=== PATIENT | female | born 1955 | race Hispanic/Latino ===

== ENCOUNTER 2022-04-29 18:25 | Inpatient (IN) | payer OTHER ==
[~2022-04-29] VITALS: Ht 149.9 cm; Wt 99.8 kg
[2022-04-29 19:05] LABS: BASOPHILS % 0.3 % (0.0-1.0); EOSINOPHILS # (AUTO) 0.1 (0.0-0.4); EOSINOPHILS % 0.9 % (0.0-6.0); HEMOGLOBIN 9.9 g/dL (12.0-16.0); LYMPHOCYTES # (AUTO) 1.5 (1.0-3.2); LYMPHOCYTES % 17.5 % (18.0-39.1); MEAN CORPUSCULAR HEMOGLOBIN 24.6 pg (28-32); MEAN CORPUSCULAR VOLUME 81.9 fL (81-99); NEUTROPHILS # (AUTO) 6.2 (2.1-6.9); NEUTROPHILS % 70.1 % (38.7-80.0); RED BLOOD COUNT 4.03 x10e6/uL (3.6-5.1); RED CELL DISTRIBUTION WIDTH 21.1 % (11.7-14.4)
[2022-04-29 19:06] LABS: PLATELET COUNT 83 x10e3/uL (140-360)
[2022-04-29 19:16] LABS: INR 1.4; PROTHROMBIN TIME 17.4 seconds (11.9-14.5)
[2022-04-29 19:17] LABS: PARTIAL THROMBOPLASTIN TIME 35.7 seconds (23.8-35.5)
[2022-04-29 19:23] LABS: ALBUMIN 2.4 g/dL (3.5-5.0); ALBUMIN/GLOBULIN RATIO 0.6 (0.8-2.0); ANION GAP 12.2 mmol/L (8-16); CREATININE, SERUM 0.98 mg/dL (0.57-1.11); POTASSIUM 4.2 mmol/L (3.5-5.1)
[2022-04-29 19:30] LABS: CREATINE KINASE MB 14.8 ng/mL (0-5.0)
[2022-04-29 19:47] LABS: CLARITY,URINE SL CLOUDY (CLEAR); COLOR,URINE YELLOW (YELLOW)
[2022-04-29 19:48] LABS: LEUKOCYTE ESTERASE ,URINE NEGATIVE (NEGATIVE); NITRITE,URINE POSITIVE (NEGATIVE)
[2022-04-29 19:49] LABS: KETONES,URINE NEGATIVE (NEGATIVE); PROTEIN,URINE DIPSTICK NEGATIVE (NEGATIVE); URINE UROBILINOGEN 0.2 mg/dL (0.2 - 1)
[2022-04-29] MEDS ORDERED: IOPAMIDOL 370 MG/ML 100 ML INFUS..BTL INJ ONE (19:59)
[2022-04-29 20:00] LABS: BACTERIA,URINE RARE /HPF; EPITHELIAL CELLS,URINE MODERATE /LPF; RBC,URINE 0-5 /HPF (0-5); WBC,URINE (MAN) 0-5 /HPF (0-5)
[2022-04-29] MEDS ORDERED: ONDANSETRON HCL INJ 2MG/ML 2ML 2 MG/ML VIAL IV PRN (20:15)
[2022-04-29] MEDS: METRONIDAZOLE 500MG/NS 100ML 100 ML IV SCH (20:15)
[2022-04-29] MEDS ORDERED: SODIUM CHLORIDE 0.9% 250ML 250 ML ONE (22:24)
[2022-04-29 22:25] VITALS: BP 126/57
[2022-04-29 23:44] VITALS: BP 126/57
[2022-04-30] VITALS (8 sets, daily range): BP systolic 98–136; BP diastolic 43–67
[2022-04-30] MEDS: METRONIDAZOLE 500MG/NS 100ML 100 ML IV SCH ×2 (00:42→05:15)
[2022-04-30 05:20] LABS: BASOPHILS % 0.3 % (0.0-1.0); EOSINOPHILS # (AUTO) 0.2 (0.0-0.4); EOSINOPHILS % 2.5 % (0.0-6.0); HEMATOCRIT 31.4 % (34.2-44.1); HEMOGLOBIN 9.3 g/dL (12.0-16.0); LYMPHOCYTES % 12.3 % (18.0-39.1); MEAN CORPUSCULAR HEMOGLOBIN 24.2 pg (28-32); MEAN CORPUSCULAR HGB CONC 29.6 g/dL (31-35); MEAN CORPUSCULAR VOLUME 81.8 fL (81-99); MONOCYTES # (AUTO) 0.6 (0.2-0.8); MONOCYTES % 7.3 % (4.4-11.3); NEUTROPHILS # (AUTO) 6.1 (2.1-6.9); NEUTROPHILS % 77.3 % (38.7-80.0); PLATELET COUNT 55 x10e3/uL (140-360); RED BLOOD COUNT 3.84 x10e6/uL (3.6-5.1); RED CELL DISTRIBUTION WIDTH 21.1 % (11.7-14.4)
[2022-04-30 05:46] LABS: ALBUMIN/GLOBULIN RATIO 0.7 (0.8-2.0); ANION GAP 10.5 mmol/L (8-16); CALCIUM 7.6 mg/dL (8.4-10.2); CREATININE, SERUM 1.54 mg/dL (0.57-1.11); POTASSIUM 3.5 mmol/L (3.5-5.1)
[2022-04-30 05:49] LABS: CREATINE KINASE MB 13.7 ng/mL (0-5.0)
[2022-04-30] MEDS ORDERED: LOSARTAN POTASS25 MG PO (09:01)
[2022-04-30] MEDS ORDERED: ALBUMIN 25% 25GM 100ML 0.25 GM/ML BTL IV ONE (12:00)
[2022-04-30] MEDS: SODIUM CHLORIDE 0.9% 1000ML 1,000 ML IV SCH (12:10)
[2022-04-30] MEDS ORDERED: METRONIDAZOLE 500MG/NS 100ML 100 ML IV SCH (15:00)
[2022-04-30 16:11] LABS: ANION GAP 10.8 mmol/L (8-16); CALCIUM 7.9 mg/dL (8.4-10.2); CREATININE, SERUM 1.9 mg/dL (0.57-1.11); POTASSIUM 3.8 mmol/L (3.5-5.1)
[2022-04-30 16:30] LABS: CREATINE KINASE MB 9.1 ng/mL (0-5.0)
[2022-04-30] MEDS: PROPRANOLOL HCL 10 MG TAB PO SCH (16:30)
[2022-05-01] VITALS (8 sets, daily range): BP systolic 100–148; BP diastolic 51–70
[2022-05-01 01:12] LABS: % IRON SATURATION 13 % (15-50); IRON 32 ug/dL (50-170); TOTAL IRON BINDING CAPACITY 244 ug/dL (261-478); TRANSFERRIN 174 mg/dL (180-382)
[2022-05-01] MEDS: SODIUM CHLORIDE 0.9% 1000ML 1,000 ML IV SCH (05:39)
[2022-05-01 05:40] LABS: BASOPHILS % 0.3 % (0.0-1.0); EOSINOPHILS # (AUTO) 0.2 (0.0-0.4); EOSINOPHILS % 3.1 % (0.0-6.0); HEMATOCRIT 28.9 % (34.2-44.1); HEMOGLOBIN 8.7 g/dL (12.0-16.0); LYMPHOCYTES # (AUTO) 1.2 (1.0-3.2); LYMPHOCYTES % 18.3 % (18.0-39.1); MEAN CORPUSCULAR HEMOGLOBIN 24.8 pg (28-32); MEAN CORPUSCULAR HGB CONC 30.1 g/dL (31-35); MEAN CORPUSCULAR VOLUME 82.3 fL (81-99); MONOCYTES # (AUTO) 0.7 (0.2-0.8); MONOCYTES % 11.3 % (4.4-11.3); NEUTROPHILS # (AUTO) 4.3 (2.1-6.9); NEUTROPHILS % 66.7 % (38.7-80.0); PLATELET COUNT 66 x10e3/uL (140-360); RED BLOOD COUNT 3.51 x10e6/uL (3.6-5.1); RED CELL DISTRIBUTION WIDTH 21.1 % (11.7-14.4)
[2022-05-01 06:05] LABS: ALBUMIN 2.2 g/dL (3.5-5.0); ALBUMIN/GLOBULIN RATIO 0.8 (0.8-2.0); ANION GAP 10.8 mmol/L (8-16); CALCIUM 7.6 mg/dL (8.4-10.2); CREATININE, SERUM 2.16 mg/dL (0.57-1.11); POTASSIUM 3.8 mmol/L (3.5-5.1)
[2022-05-01 07:21] LABS: CREATINE KINASE MB 4.6 ng/mL (0-5.0)
[2022-05-01] MEDS: PROPRANOLOL HCL 10 MG TAB PO SCH ×2 (09:35→16:54)
[2022-05-01] MEDS: IRON SUCROSE 100 MG in SODIUM CHLORIDE 0.9% 100 ML IV SCH (13:25)
[2022-05-01] MEDS ORDERED: LACTATED RINGER'S 1,000 ML INJ ONE (14:15)
[2022-05-01] MEDS ORDERED: Vancomycin IV 1 GM in SODIUM CHLORIDE 0.9% 250ML 250 ML IV ONE (19:00)
[2022-05-02] VITALS (7 sets, daily range): BP systolic 102–147; BP diastolic 47–69
[2022-05-02 05:43] LABS: BASOPHILS % 0.5 % (0.0-1.0); EOSINOPHILS # (AUTO) 0.3 (0.0-0.4); EOSINOPHILS % 5.4 % (0.0-6.0); HEMATOCRIT 29.6 % (34.2-44.1); HEMOGLOBIN 8.9 g/dL (12.0-16.0); LYMPHOCYTES # (AUTO) 1.7 (1.0-3.2); LYMPHOCYTES % 26.7 % (18.0-39.1); MEAN CORPUSCULAR HEMOGLOBIN 24.7 pg (28-32); MEAN CORPUSCULAR HGB CONC 30.1 g/dL (31-35); MEAN CORPUSCULAR VOLUME 82.2 fL (81-99); MONOCYTES # (AUTO) 0.8 (0.2-0.8); MONOCYTES % 13.1 % (4.4-11.3); NEUTROPHILS # (AUTO) 3.4 (2.1-6.9); NEUTROPHILS % 53.8 % (38.7-80.0); PLATELET COUNT 83 x10e3/uL (140-360); RED CELL DISTRIBUTION WIDTH 21.2 % (11.7-14.4)
[2022-05-02 06:18] LABS: ANION GAP 10.7 mmol/L (8-16); CALCIUM 7.8 mg/dL (8.4-10.2); POTASSIUM 3.7 mmol/L (3.5-5.1)
[2022-05-02 06:40] LABS: MAGNESIUM 1.8 MG/DL (1.3-2.1); PHOSPHORUS 3.5 MG/DL (2.3-4.7)
[2022-05-02] MEDS: PROPRANOLOL HCL 10 MG TAB PO SCH ×2 (09:59→16:54)
[2022-05-02] MEDS ORDERED: ONDANSETRON HCL 4 MG ORAL DISINTEGRATING TAB PO PRN (11:30)
[2022-05-02] MEDS ORDERED: MAGNESIUM OXIDE 400 MG TAB PO ONE (15:30)
[2022-05-02] MEDS: IRON SUCROSE 100 MG in SODIUM CHLORIDE 0.9% 100 ML IV SCH (16:52)
[2022-05-03] VITALS (8 sets, daily range): BP systolic 103–133; BP diastolic 52–78
[2022-05-03 06:49] LABS: CALCIUM 7.4 mg/dL (8.4-10.2); CREATININE, SERUM 1.54 mg/dL (0.57-1.11)
[2022-05-03] MEDS: PROPRANOLOL HCL 10 MG TAB PO SCH ×2 (09:21→17:00)
[2022-05-03] MEDS: IRON SUCROSE 100 MG in SODIUM CHLORIDE 0.9% 100 ML IV SCH (14:53)
[2022-05-03] MEDS ORDERED: FUROSEMIDE INJ 10 MG/ML 4 ML VIAL IV ONE (15:45)
[2022-05-04] VITALS (8 sets, daily range): BP systolic 94–118; BP diastolic 25–67
[2022-05-04 05:53] LABS: BASOPHILS % 0.6 % (0.0-1.0); EOSINOPHILS # (AUTO) 0.3 (0.0-0.4); EOSINOPHILS % 5.3 % (0.0-6.0); HEMATOCRIT 30.3 % (34.2-44.1); HEMOGLOBIN 9.1 g/dL (12.0-16.0); LYMPHOCYTES # (AUTO) 1.4 (1.0-3.2); LYMPHOCYTES % 29.9 % (18.0-39.1); MEAN CORPUSCULAR HEMOGLOBIN 24.5 pg (28-32); MEAN CORPUSCULAR VOLUME 81.7 fL (81-99); MONOCYTES # (AUTO) 0.7 (0.2-0.8); MONOCYTES % 14.6 % (4.4-11.3); NEUTROPHILS # (AUTO) 2.3 (2.1-6.9); NEUTROPHILS % 48.8 % (38.7-80.0); PLATELET COUNT 76 x10e3/uL (140-360); RED BLOOD COUNT 3.71 x10e6/uL (3.6-5.1); RED CELL DISTRIBUTION WIDTH 21.4 % (11.7-14.4)
[2022-05-04 06:09] LABS: ALBUMIN/GLOBULIN RATIO 0.7 (0.8-2.0); ANION GAP 10.5 mmol/L (8-16); CALCIUM 7.5 mg/dL (8.4-10.2); CREATININE, SERUM 1.27 mg/dL (0.57-1.11); POTASSIUM 3.5 mmol/L (3.5-5.1)
[2022-05-04] MEDS: PROPRANOLOL HCL 10 MG TAB PO SCH ×2 (08:58→17:49)
[2022-05-04] MEDS ORDERED: FUROSEMIDE INJ 10 MG/ML 4 ML VIAL IV ONE (11:30)
[2022-05-04] MEDS ORDERED: POTASSIUM CHLORIDE 20 MEQ TAB CR PO ONE (17:41)
[2022-05-04] MEDS: CEFAZOLIN SODIUM 2 GM in SODIUM CHLORIDE 0.9% 100 ML IV SCH (17:49)
[2022-05-04] MEDS: FUROSEMIDE INJ 10 MG/ML 4 ML VIAL IV SCH (23:48)
[2022-05-05] VITALS (9 sets, daily range): BP systolic 103–137; BP diastolic 38–88
[2022-05-05] MEDS: CEFAZOLIN SODIUM 2 GM in SODIUM CHLORIDE 0.9% 100 ML IV SCH ×3 (01:17→16:39)
[2022-05-05 06:15] LABS: ALBUMIN/GLOBULIN RATIO 0.6 (0.8-2.0); ANION GAP 12.5 mmol/L (8-16); CALCIUM 7.5 mg/dL (8.4-10.2); POTASSIUM 3.5 mmol/L (3.5-5.1)
[2022-05-05] MEDS: PROPRANOLOL HCL 10 MG TAB PO SCH ×2 (09:11→16:40)
[2022-05-05] MEDS: FUROSEMIDE INJ 10 MG/ML 4 ML VIAL IV SCH ×2 (09:11→21:22)
[2022-05-05] MEDS: POTASSIUM CHLORIDE 20 MEQ TAB CR PO SCH (09:12)
[2022-05-06] VITALS (7 sets, daily range): BP systolic 105–137; BP diastolic 48–67
[2022-05-06] MEDS: CEFAZOLIN SODIUM 2 GM in SODIUM CHLORIDE 0.9% 100 ML IV SCH ×3 (01:06→18:31)
[2022-05-06 06:08] LABS: INR 1.44; PROTHROMBIN TIME 17.7 seconds (11.9-14.5)
[2022-05-06 06:09] LABS: PARTIAL THROMBOPLASTIN TIME 39.8 seconds (23.8-35.5)
[2022-05-06 06:15] LABS: CALCIUM 7.5 mg/dL (8.4-10.2); CREATININE, SERUM 0.79 mg/dL (0.57-1.11)
[2022-05-06] MEDS: FUROSEMIDE INJ 10 MG/ML 4 ML VIAL IV SCH ×2 (08:54→21:06)
[2022-05-06] MEDS: POTASSIUM CHLORIDE 20 MEQ TAB CR PO SCH (08:54)
[2022-05-06] MEDS: PROPRANOLOL HCL 10 MG TAB PO SCH ×2 (09:00→18:31)
[2022-05-06] MEDS ORDERED: POTASSIUM CHLORIDE 10MEQ EA PO ONE (11:00)
[2022-05-06 11:09] LABS: CLARITY,URINE CLEAR (CLEAR); COLOR,URINE YELLOW (YELLOW); KETONES,URINE NEGATIVE (NEGATIVE); LEUKOCYTE ESTERASE ,URINE NEGATIVE (NEGATIVE); NITRITE,URINE NEGATIVE (NEGATIVE); PROTEIN,URINE DIPSTICK NEGATIVE (NEGATIVE); URINE UROBILINOGEN 0.2 mg/dL (0.2 - 1)
[2022-05-06 12:38] LABS: BACTERIA,URINE RARE /HPF; EPITHELIAL CELLS,URINE FEW /LPF; RBC,URINE 0-5 /HPF (0-5); WBC,URINE (MAN) 0-5 /HPF (0-5)
[2022-05-06] MEDS ORDERED: MAGNESIUM SULFATE 2GM/50ML 50 ML IV ONE ×3 (14:15→21:00)
[2022-05-06] MEDS ORDERED: POTASSIUM CHLORIDE 20 MEQ TAB CR PO ONE ×2 (17:17→21:00)
[2022-05-07] VITALS (8 sets, daily range): BP systolic 102–133; BP diastolic 38–56
[2022-05-07] MEDS: CEFAZOLIN SODIUM 2 GM in SODIUM CHLORIDE 0.9% 100 ML IV SCH ×3 (01:17→16:46)
[2022-05-07 06:49] LABS: BASOPHILS % 0.4 % (0.0-1.0); EOSINOPHILS # (AUTO) 0.2 (0.0-0.4); EOSINOPHILS % 4.7 % (0.0-6.0); HEMATOCRIT 28.6 % (34.2-44.1); HEMOGLOBIN 8.8 g/dL (12.0-16.0); LYMPHOCYTES # (AUTO) 1.4 (1.0-3.2); LYMPHOCYTES % 26.5 % (18.0-39.1); MEAN CORPUSCULAR HEMOGLOBIN 25.2 pg (28-32); MEAN CORPUSCULAR HGB CONC 30.8 g/dL (31-35); MEAN CORPUSCULAR VOLUME 81.9 fL (81-99); MONOCYTES # (AUTO) 0.6 (0.2-0.8); MONOCYTES % 12.6 % (4.4-11.3); NEUTROPHILS # (AUTO) 2.8 (2.1-6.9); NEUTROPHILS % 54.4 % (38.7-80.0); RED BLOOD COUNT 3.49 x10e6/uL (3.6-5.1); RED CELL DISTRIBUTION WIDTH 21.8 % (11.7-14.4)
[2022-05-07 07:03] LABS: PLATELET COUNT 68 x10e3/uL (140-360)
[2022-05-07 07:15] LABS: ALBUMIN 1.8 g/dL (3.5-5.0); ALBUMIN/GLOBULIN RATIO 0.6 (0.8-2.0); ANION GAP 10.4 mmol/L (8-16); CALCIUM 7.5 mg/dL (8.4-10.2); CREATININE, SERUM 0.67 mg/dL (0.57-1.11); POTASSIUM 3.4 mmol/L (3.5-5.1)
[2022-05-07] MEDS: POTASSIUM CHLORIDE 20 MEQ TAB CR PO SCH (09:28)
[2022-05-07] MEDS: PROPRANOLOL HCL 10 MG TAB PO SCH ×2 (09:29→16:47)
[2022-05-07] MEDS: FUROSEMIDE INJ 10 MG/ML 4 ML VIAL IV SCH ×2 (09:40→20:40)
[2022-05-07] MEDS ORDERED: FUROSEMIDE INJ 10 MG/ML 4 ML VIAL IV ONE (14:45)
[2022-05-07] MEDS ORDERED: MAGNESIUM SULF 1GRAM/DEXTROSE 100 ML IV ONE (17:45)
[2022-05-08] VITALS (8 sets, daily range): BP systolic 104–120; BP diastolic 42–75
[2022-05-08] MEDS: CEFAZOLIN SODIUM 2 GM in SODIUM CHLORIDE 0.9% 100 ML IV SCH ×3 (00:13→16:40)
[2022-05-08 06:51] LABS: ANION GAP 11.5 mmol/L (8-16); CALCIUM 7.2 mg/dL (8.4-10.2); CREATININE, SERUM 0.71 mg/dL (0.57-1.11); POTASSIUM 3.5 mmol/L (3.5-5.1)
[2022-05-08] MEDS: POTASSIUM CHLORIDE 20 MEQ TAB CR PO SCH (09:08)
[2022-05-08] MEDS: FUROSEMIDE INJ 10 MG/ML 4 ML VIAL IV SCH ×2 (09:08→21:46)
[2022-05-08] MEDS: PROPRANOLOL HCL 10 MG TAB PO SCH ×2 (09:09→16:41)
[2022-05-09] MEDS: CEFAZOLIN SODIUM 2 GM in SODIUM CHLORIDE 0.9% 100 ML IV SCH ×3 (00:48→16:48)
[2022-05-09 01:41] VITALS: BP 103/45
[2022-05-09 05:27] VITALS: BP 110/74
[2022-05-09 06:27] LABS: ANION GAP 10.5 mmol/L (8-16); CALCIUM 7.1 mg/dL (8.4-10.2); CREATININE, SERUM 0.65 mg/dL (0.57-1.11); MAGNESIUM 1.3 MG/DL (1.3-2.1); POTASSIUM 3.5 mmol/L (3.5-5.1)
[2022-05-09 08:00] VITALS: BP 103/55
[2022-05-09] MEDS ORDERED: IRON-VITAMIN-MINERAL CAPSULE PO SCH (09:00)
[2022-05-09] MEDS: FUROSEMIDE INJ 10 MG/ML 4 ML VIAL IV SCH (09:04)
[2022-05-09] MEDS: PROPRANOLOL HCL 10 MG TAB PO SCH (09:05)
[2022-05-09] MEDS: POTASSIUM CHLORIDE 20 MEQ TAB CR PO SCH (09:05)
[2022-05-09 09:55] VITALS: BP 103/55
[2022-05-09] MEDS ORDERED: POTASSIUM CHLORIDE 20 MEQ TAB CR PO ONE (12:00)
[2022-05-09] MEDS ORDERED: MAGNESIUM SULFATE 2GM/50ML 50 ML IV ONE (12:00)
[2022-05-09] MEDS ORDERED: INDERAL10 MG PO (12:03)
[2022-05-09 12:55] VITALS: BP 104/46
[2022-05-09 17:26] VITALS: BP 109/46
== END 2022-05-09 18:54 | disposition home or self-care (01) | DRG 432 ==
LOC: ER 18:29 → ERHOLD 20:24 → MED/SURG2 21:41 → OBSVTOIN 05-02 08:27
PROVIDERS: ADMIT Internal Medicine; ATTEND Internal Medicine
PROC: 3E03329 Introduction of Other Anti-infective into Peripheral Vein, Percutaneous Approach (ICD-10-PCS; 2022-04-29)
PROC: 3E03329 Introduction of Other Anti-infective into Peripheral Vein, Percutaneous Approach (ICD-10-PCS; 2022-04-29)
PROC: 3E03329 Introduction of Other Anti-infective into Peripheral Vein, Percutaneous Approach (ICD-10-PCS; 2022-04-30)
PROC: 3E03329 Introduction of Other Anti-infective into Peripheral Vein, Percutaneous Approach (ICD-10-PCS; 2022-04-30)
PROC: 3E03329 Introduction of Other Anti-infective into Peripheral Vein, Percutaneous Approach (ICD-10-PCS; 2022-05-01)
PROC: 3E03329 Introduction of Other Anti-infective into Peripheral Vein, Percutaneous Approach (ICD-10-PCS; 2022-05-01)
PROC: 3E03329 Introduction of Other Anti-infective into Peripheral Vein, Percutaneous Approach (ICD-10-PCS; 2022-05-02)
PROC: 3E03329 Introduction of Other Anti-infective into Peripheral Vein, Percutaneous Approach (ICD-10-PCS; 2022-05-03)
PROC: 3E03329 Introduction of Other Anti-infective into Peripheral Vein, Percutaneous Approach (ICD-10-PCS; 2022-05-03)
PROC: 3E03329 Introduction of Other Anti-infective into Peripheral Vein, Percutaneous Approach (ICD-10-PCS; 2022-05-04)
PROC: 3E03329 Introduction of Other Anti-infective into Peripheral Vein, Percutaneous Approach (ICD-10-PCS; 2022-05-05)
PROC: 02HV33Z Insertion of Infusion Device into Superior Vena Cava, Percutaneous Approach (ICD-10-PCS; principal; 2022-05-06)
PROC: 3E03329 Introduction of Other Anti-infective into Peripheral Vein, Percutaneous Approach (ICD-10-PCS; 2022-05-06)
PROC: 3E04329 Introduction of Other Anti-infective into Central Vein, Percutaneous Approach (ICD-10-PCS; 2022-05-07)
PROC: 3E04329 Introduction of Other Anti-infective into Central Vein, Percutaneous Approach (ICD-10-PCS; 2022-05-08)
PROC: 3E04329 Introduction of Other Anti-infective into Central Vein, Percutaneous Approach (ICD-10-PCS; 2022-05-09)
DX: K70.31 Alcoholic cirrhosis of liver with ascites (principal); A41.01 Sepsis due to Methicillin susceptible Staphylococcus aureus; I33.0 Acute and subacute infective endocarditis; J90 Pleural effusion, not elsewhere classified; M62.82 Rhabdomyolysis; N17.9 Acute kidney failure, unspecified; I87.1 Compression of vein; Z68.41 Body mass index [BMI] 40.0-44.9, adult; I82.611 Acute embolism and thrombosis of superficial veins of right upper extremity; E87.6 Hypokalemia; I95.9 Hypotension, unspecified; E87.70 Fluid overload, unspecified; E83.42 Hypomagnesemia; D69.6 Thrombocytopenia, unspecified; E88.09 Other disorders of plasma-protein metabolism, not elsewhere classified; K76.1 Chronic passive congestion of liver; R53.81 Other malaise; D50.9 Iron deficiency anemia, unspecified; E66.01 Morbid (severe) obesity due to excess calories; L53.8 Other specified erythematous conditions; I10 Essential (primary) hypertension; K52.9 Noninfective gastroenteritis and colitis, unspecified; Z90.710 Acquired absence of both cervix and uterus; Z82.49 Family history of ischemic heart disease and other diseases of the circulatory system; Z83.79 Family history of other diseases of the digestive system
CPT/HCPCS: 36415; 36569; 71045; 74177; 74470; 76705; 80048; 80053; 81001; 82105; 82550; 82553; 82607; 82746; 83540; 83690; 83735; 84100; 84300; 84466; 84484; 85025; 85045; 85610; 85730; 87040; 87071; 87186; 87205; 93005; 93306; 93970; 93971; 94799; 99252; 99284; G0378; J0690; J1756; J1940; J2543; J3370; J3475; J7030; J7050; J7121; P9047; Q9967

== ENCOUNTER 2023-10-31 23:47 | Inpatient (IN) | payer MEDICARE, OTHER ==
[~2023-10-31] VITALS: Ht 149.9 cm; Wt 74.6 kg
[~2023-10-31 23:47] MED LIST: INDERAL10 MG PO; LOSARTAN POTASS25 MG PO; TAMIFLU75 MG PO
[2023-11-01] VITALS (34 sets, daily range): BP systolic 65–124; BP diastolic 27–78; PULSE 59–79; RESP 12–21; TEMP 96.2–98.1; O2SAT 97–100
[2023-11-01] MEDS: MIDODRINE 2.5 MG TAB PO ONE (00:47)
[2023-11-01 01:05] LABS: BASOPHILS % 0.3 % (0.0-1.0); EOSINOPHILS % 0.2 % (0.0-6.0); HEMATOCRIT 31.1 % (34.2-44.1); HEMOGLOBIN 9.7 g/dL (12.0-16.0); LYMPHOCYTES # (AUTO) 1.5 (1.0-3.2); LYMPHOCYTES % 11.7 % (18.0-39.1); MEAN CORPUSCULAR HEMOGLOBIN 31.3 pg (28-32); MEAN CORPUSCULAR HGB CONC 31.2 g/dL (31-35); MEAN CORPUSCULAR VOLUME 100.3 fL (81-99); MONOCYTES # (AUTO) 0.6 (0.2-0.8); MONOCYTES % 4.8 % (4.4-11.3); NEUTROPHILS # (AUTO) 10.4 (2.1-6.9); NEUTROPHILS % 82.3 % (38.7-80.0); RED CELL DISTRIBUTION WIDTH 15.7 % (11.7-14.4)
[2023-11-01 01:08] LABS: PLATELET COUNT 72 x10e3/uL (140-360)
[2023-11-01 01:13] LABS: ALBUMIN 1.6 g/dL (3.5-5.0); ALBUMIN/GLOBULIN RATIO 0.4 (0.8-2.0); ANION GAP 20.9 mmol/L (8-16); BILIRUBIN,TOTAL 4.1 mg/dL (0.2-1.2); CALCIUM 7.3 mg/dL (8.4-10.2); CREATININE, SERUM 1.76 mg/dL (0.57-1.11); POTASSIUM 3.9 mmol/L (3.5-5.1); TOTAL PROTEIN 5.3 g/dL (6.5-8.1)
[2023-11-01] MEDS: Vancomycin IV 1 GM in SODIUM CHLORIDE 0.9% 250ML 250 ML IV ONE (02:02)
[2023-11-01 02:15] LABS: INR 2.63; PARTIAL THROMBOPLASTIN TIME 46.8 seconds (23.8-35.5); PROTHROMBIN TIME 29.8 seconds (11.9-14.5)
[2023-11-01] MEDS ORDERED: ONDANSETRON HCL INJ 2MG/ML 2ML 2 MG/ML VIAL IV PRN (02:30)
[2023-11-01] MEDS: SODIUM CHLORIDE 0.9% 500ML 500 ML IV ONE ×2 (02:54→04:16)
[2023-11-01] MEDS: ALBUMIN 25% 25GM 100ML 0.25 GM/ML BTL IV ONE ×2 (02:54→09:07)
[2023-11-01] MEDS ORDERED: SODIUM CHLORIDE 0.9% 500ML 500 ML ONE (04:19)
[2023-11-01] MEDS ORDERED: ACETAMINOPHEN 325 MG TAB PO PRN (05:45)
[2023-11-01] MEDS ORDERED: ALBUTEROL SULF 0.083% NEB SOLN 3 ML NEB NEB PRN (05:45)
[2023-11-01] MEDS ORDERED: GUAIFENESIN/DEXTROMETHORPHAN LIQD 5 ML UDC PO PRN (05:45)
[2023-11-01] MEDS ORDERED: TRAMADOL HCL 50 MG TAB PO PRN (05:45)
[2023-11-01] MEDS ORDERED: MAGNESIUM/ALUMINUM/SIMETHICONE 30 ML UDC PO PRN (05:45)
[2023-11-01] MEDS ORDERED: MELATONIN 3 MG TAB PO PRN (05:45)
[2023-11-01] MEDS ORDERED: SODIUM CHLORIDE 0.9% 100 ML ONE (06:06)
[2023-11-01] MEDS ORDERED: Doxycycline IV 100 MG Vial IV ONE (06:06)
[2023-11-01] MEDS: Doxycycline IV 100 MG in SODIUM CHLORIDE 0.9% 100 ML IV SCH (06:10)
[2023-11-01 06:33] LABS: ABG HCO3 23 mmol/L (22-26); ABG PCO2 41 mmHg (35-45); ABG PH 7.31 (7.35-7.45); ABG PO2 80 mmHg (80-105); ABG TCO2 24
[2023-11-01 07:26] LABS: BAND NEUTROPHILS % (MANUAL) 18 %; LYMPHOCYTES % (MANUAL) 14 % (19-48); METAMYELOCYTES % (MANUAL) 7 % (0-0); NEUTROPHILS % (MANUAL) 60 % (40-74); PLATELET ESTIMATE MODERATELY DECREASED; REACTIVE LYMPHOCYTES 1
[2023-11-01 07:27] LABS: HYPOCHROMASIA SLIGHT; PLATELET MORPHOLOGY COMMENT NORMAL; RBC MORPHOLOGY COMMENT ABNORMAL
[2023-11-01] MEDS: MIDODRINE 2.5 MG TAB PO SCH (08:00)
[2023-11-01] MEDS ORDERED: LACTATED RINGER'S 500 ML IV ONE (08:00)
[2023-11-01] MEDS: MULTIVITAMINS/MINERALS TAB PO SCH (08:14)
[2023-11-01] MEDS ORDERED: MIDODRINE HCL 5 MG TABLET ONE (08:32)
[2023-11-01] MEDS ORDERED: ALBUMIN 25% 12.5GM 50ML 100 ML IV ONE (08:34)
[2023-11-01] MEDS: LACTATED RINGER'S 500 ML IV ONE ×2 (09:06→11:10)
[2023-11-01] MEDS: ALBUMIN 25% 12.5GM 0.25 GM/ML BTL IV ONE ×2 (11:31→11:33)
[2023-11-01] MEDS: MIDODRINE HCL 5 MG TABLET PO SCH (11:32)
[2023-11-01] MEDS ORDERED: MIDODRINE HCL 5 MG TABLET PO SCH (12:00)
[2023-11-01] MEDS ORDERED: ALBUMIN 25% 12.5GM 0.25 GM/ML BTL IV ONE ×2 (12:15)
[2023-11-01] MEDS ORDERED: ALBUMIN 25% 25GM 100ML 0.25 GM/ML BTL IV ONE (13:15)
[2023-11-01] MEDS: ALBUMIN 25% 12.5GM 50ML 50 ML IV SCH (14:39)
[2023-11-01] MEDS: VASOPRESSIN INJ 20 UNIT/ML VIAL ONE (14:40)
[2023-11-01] MEDS: VASOPRESSIN 60 UNIT in DEXTROSE 5% 50ML 57 ML IV SCH (15:06)
[2023-11-01] MEDS: SODIUM CHLORIDE 0.9% 500ML 500 ML ONE (15:07)
[2023-11-01] MEDS: ALBUMIN 25% 25GM 100ML 100 ML IV SCH (15:18)
[2023-11-01 16:52] LABS: ALBUMIN 2.6 g/dL (3.5-5.0); ANION GAP 18.2 mmol/L (8-16); BILIRUBIN,TOTAL 4.6 mg/dL (0.2-1.2); CALCIUM 7.2 mg/dL (8.4-10.2); CREATININE, SERUM 2.15 mg/dL (0.57-1.11); POTASSIUM 4.2 mmol/L (3.5-5.1); TOTAL PROTEIN 5.1 g/dL (6.5-8.1)
[2023-11-01] MEDS ORDERED: OCTREOTIDE ACETATE 1 ML ONE (19:53)
[2023-11-01] MEDS: OCTREOTIDE ACETATE 500 MCG in SODIUM CHLORIDE 0.9% 250ML 249 ML IV SCH (20:00)
[2023-11-01] MEDS ORDERED: FUROSEMIDE INJ 10 MG/ML 4 ML VIAL IV SCH (21:00)
[2023-11-01] MEDS: SODIUM BICARBONATE 8.4% SYRING 150 ML in DEXTROSE 5% 1,000 ML IV SCH (21:38)
[2023-11-01] MEDS: BUMETANIDE INJ 0.25MG/ML 4ML VIAL IV ONE (21:39)
[2023-11-02] VITALS (79 sets, daily range): BP systolic 78–139; BP diastolic 42–86; PULSE 59–89; RESP 12–23; TEMP 97.5–98.1; O2SAT 94–100
[2023-11-02 01:54] LABS: CREATININE,URINE RANDOM 278.19 mg/dL (47-110)
[2023-11-02] MEDS: PHYTONADIONE 10 MG/ML AMP IV ONE (02:17)
[2023-11-02 02:21] LABS: SODIUM,URINE < 20 mmol/L
[2023-11-02 06:22] LABS: BASOPHILS # (AUTO) 0.1 (0.0-0.1); BASOPHILS % 0.5 % (0.0-1.0); HEMATOCRIT 24.8 % (34.2-44.1); LYMPHOCYTES # (AUTO) 1.3 (1.0-3.2); LYMPHOCYTES % 11.7 % (18.0-39.1); MEAN CORPUSCULAR HEMOGLOBIN 31.3 pg (28-32); MEAN CORPUSCULAR HGB CONC 30.2 g/dL (31-35); MONOCYTES # (AUTO) 1.2 (0.2-0.8); MONOCYTES % 10.9 % (4.4-11.3); NEUTROPHILS # (AUTO) 7.3 (2.1-6.9); NEUTROPHILS % 68.2 % (38.7-80.0); RED CELL DISTRIBUTION WIDTH 15.9 % (11.7-14.4); WHITE BLOOD COUNT 10.68 x10e3/uL (4.8-10.8)
[2023-11-02 06:25] LABS: PLATELET COUNT 39 x10e3/uL (140-360)
[2023-11-02 06:28] LABS: HEMOGLOBIN 7.5 g/dL (12.0-16.0)
[2023-11-02 06:29] LABS: MEAN CORPUSCULAR VOLUME 103.3 fL (81-99)
[2023-11-02 06:31] LABS: INR 4.57
[2023-11-02 06:53] LABS: ALBUMIN 3.2 g/dL (3.5-5.0); ALBUMIN/GLOBULIN RATIO 1.6 (0.8-2.0); ANION GAP 17.5 mmol/L (8-16); BILIRUBIN,TOTAL 4.9 mg/dL (0.2-1.2); CALCIUM 7.2 mg/dL (8.4-10.2); CREATININE, SERUM 2.59 mg/dL (0.57-1.11); POTASSIUM 4.5 mmol/L (3.5-5.1); TOTAL PROTEIN 5.2 g/dL (6.5-8.1)
[2023-11-02] MEDS: ALBUMIN 5% 0.05 GM/ML BTL IV ONE ×2 (08:13→11:52)
[2023-11-02] MEDS: BUMETANIDE INJ 0.25MG/ML 4ML VIAL IV ONE (08:20)
[2023-11-02 10:18] LABS: BAND NEUTROPHILS % (MANUAL) 4 %; LYMPHOCYTES % (MANUAL) 14 % (19-48); MONOCYTES % (MANUAL) 11 % (3.4-9.0); MYELOCYTES % (MANUAL) 2 % (0-0); NEUTROPHILS % (MANUAL) 69 % (40-74); PLATELET ESTIMATE MARKEDLY DECREASED; PLATELET MORPHOLOGY COMMENT NORMAL; RBC MORPHOLOGY COMMENT NORMAL
[2023-11-02 12:26] LABS: HEPATITIS B SURFACE AG (P) Nonreactive
[2023-11-02 12:27] LABS: HEPATITIS C ANTIBODY Nonreactive
[2023-11-02] MEDS ORDERED: BUMETANIDE 10 MG in SODIUM CHLORIDE 0.9% 60 ML IV SCH (13:30)
[2023-11-02] MEDS: BUMETANIDE 10 MG in SODIUM CHLORIDE 0.9% 60 ML IV SCH (16:31)
[2023-11-03] VITALS (47 sets, daily range): BP systolic 104–167; BP diastolic 32–105; PULSE 58–72; RESP 11–23; TEMP 97.8–98.6; O2SAT 99–100
[2023-11-03] MEDS: PHYTONADIONE 10 MG/ML AMP IV ONE (02:58)
[2023-11-03 03:58] LABS: % IRON SATURATION 62 % (15-50); IRON 67 ug/dL (50-170); TOTAL IRON BINDING CAPACITY 108 ug/dL (261-478); TRANSFERRIN 77 mg/dL (180-382)
[2023-11-03 04:32] LABS: FOLATE 7.7 ng/mL (7.0-15.4)
[2023-11-03 06:48] LABS: ALBUMIN/GLOBULIN RATIO 1.3 (0.8-2.0); ANION GAP 12.9 mmol/L (8-16); CALCIUM 7.1 mg/dL (8.4-10.2); CREATININE, SERUM 2.44 mg/dL (0.57-1.11); POTASSIUM 3.9 mmol/L (3.5-5.1); TOTAL PROTEIN 5.4 g/dL (6.5-8.1)
[2023-11-03 08:00] LABS: BASOPHILS % 0.2 % (0.0-1.0); EOSINOPHILS % 0.2 % (0.0-6.0); HEMATOCRIT 24.2 % (34.2-44.1); HEMOGLOBIN 7.6 g/dL (12.0-16.0); LYMPHOCYTES # (AUTO) 1.9 (1.0-3.2); LYMPHOCYTES % 14.9 % (18.0-39.1); MEAN CORPUSCULAR HEMOGLOBIN 31.3 pg (28-32); MEAN CORPUSCULAR HGB CONC 31.4 g/dL (31-35); MEAN CORPUSCULAR VOLUME 99.6 fL (81-99); MONOCYTES # (AUTO) 1.5 (0.2-0.8); MONOCYTES % 11.6 % (4.4-11.3); NEUTROPHILS # (AUTO) 9.2 (2.1-6.9); NEUTROPHILS % 71.6 % (38.7-80.0); RED BLOOD COUNT 2.43 x10e6/uL (3.6-5.1); RED CELL DISTRIBUTION WIDTH 15.4 % (11.7-14.4); WHITE BLOOD COUNT 12.81 x10e3/uL (4.8-10.8)
[2023-11-03 08:02] LABS: PLATELET COUNT 50 x10e3/uL (140-360)
[2023-11-03 08:22] LABS: INR 2.42; PROTHROMBIN TIME 27.9 seconds (11.9-14.5)
[2023-11-03 09:55] LABS: LYMPHOCYTES % (MANUAL) 5 % (19-48); MONOCYTES % (MANUAL) 5 % (3.4-9.0); MYELOCYTES % (MANUAL) 1 % (0-0); NEUTROPHILS % (MANUAL) 89 % (40-74); PLATELET ESTIMATE MARKEDLY DECREASED; PLATELET MORPHOLOGY COMMENT NORMAL
[2023-11-03 09:56] LABS: RBC MORPHOLOGY COMMENT NORMAL
[2023-11-04] VITALS (28 sets, daily range): BP systolic 132–178; BP diastolic 55–97; PULSE 57–83; RESP 11–23; TEMP 97.5–99; O2SAT 92–100
[2023-11-04] MEDS: PHYTONADIONE 10 MG/ML AMP IV ONE (04:42)
[2023-11-04 06:26] LABS: BASOPHILS % 0.3 % (0.0-1.0); EOSINOPHILS # (AUTO) 0.1 (0.0-0.4); EOSINOPHILS % 0.7 % (0.0-6.0); HEMATOCRIT 26.8 % (34.2-44.1); HEMOGLOBIN 8.5 g/dL (12.0-16.0); LYMPHOCYTES # (AUTO) 1.6 (1.0-3.2); LYMPHOCYTES % 16.6 % (18.0-39.1); MEAN CORPUSCULAR HGB CONC 31.7 g/dL (31-35); MEAN CORPUSCULAR VOLUME 97.8 fL (81-99); MONOCYTES # (AUTO) 1.3 (0.2-0.8); MONOCYTES % 13.9 % (4.4-11.3); NEUTROPHILS # (AUTO) 5.8 (2.1-6.9); NEUTROPHILS % 61.6 % (38.7-80.0); RED BLOOD COUNT 2.74 x10e6/uL (3.6-5.1); RED CELL DISTRIBUTION WIDTH 14.7 % (11.7-14.4); WHITE BLOOD COUNT 9.34 x10e3/uL (4.8-10.8)
[2023-11-04 06:33] LABS: PLATELET COUNT 45 x10e3/uL (140-360)
[2023-11-04 06:41] LABS: INR 2.3; PROTHROMBIN TIME 26.8 seconds (11.9-14.5)
[2023-11-04 06:53] LABS: ALBUMIN 2.7 g/dL (3.5-5.0); ALBUMIN/GLOBULIN RATIO 1.1 (0.8-2.0); ANION GAP 10.3 mmol/L (8-16); BILIRUBIN,TOTAL 4.2 mg/dL (0.2-1.2); CALCIUM 7.6 mg/dL (8.4-10.2); CREATININE, SERUM 1.66 mg/dL (0.57-1.11); POTASSIUM 3.3 mmol/L (3.5-5.1); TOTAL PROTEIN 5.2 g/dL (6.5-8.1)
[2023-11-04] MEDS: POTASSIUM CHLORIDE 20 MEQ TAB CR PO STA (08:23)
[2023-11-04] MEDS: BUMETANIDE INJ 0.25MG/ML 4ML VIAL IV SCH (12:14)
[2023-11-04] MEDS: LACTULOSE SYRUP 20 GM/30 ML UDC PO PRN (12:14)
[2023-11-04] MEDS: POTASSIUM CHLORIDE 20MEQ/100ML 100 ML IV ONE (12:14)
[2023-11-04 13:28] LABS: BAND NEUTROPHILS % (MANUAL) 4 %; EOSINOPHILS % (MANUAL) 2 % (0-7); LYMPHOCYTES % (MANUAL) 19 % (19-48); MONOCYTES % (MANUAL) 2 % (3.4-9.0); NEUTROPHILS % (MANUAL) 73 % (40-74); PLATELET ESTIMATE MODERATELY DECREASED; PLATELET MORPHOLOGY COMMENT NORMAL
[2023-11-04 13:29] LABS: HYPOCHROMASIA SLIGHT
[2023-11-04] MEDS: HYDRALAZINE HCL 20 MG/ML VIAL IV PRN (13:39)
[2023-11-05] VITALS (25 sets, daily range): BP systolic 123–188; BP diastolic 56–100; PULSE 56–81; RESP 10–22; TEMP 97.7–99.3; O2SAT 100
[2023-11-05] MEDS: PHYTONADIONE 10 MG/ML AMP IV ONE (03:33)
[2023-11-05 06:48] LABS: INR 2.57; PROTHROMBIN TIME 29.2 seconds (11.9-14.5)
[2023-11-05] MEDS: LACTULOSE SYRUP 20 GM/30 ML UDC PO SCH (06:50)
[2023-11-05 06:55] LABS: BASOPHILS # (AUTO) 0.1 (0.0-0.1); BASOPHILS % 0.6 % (0.0-1.0); EOSINOPHILS # (AUTO) 0.1 (0.0-0.4); EOSINOPHILS % 0.6 % (0.0-6.0); HEMATOCRIT 26.2 % (34.2-44.1); HEMOGLOBIN 8.5 g/dL (12.0-16.0); LYMPHOCYTES # (AUTO) 1.5 (1.0-3.2); LYMPHOCYTES % 18.4 % (18.0-39.1); MEAN CORPUSCULAR HGB CONC 32.4 g/dL (31-35); MEAN CORPUSCULAR VOLUME 95.6 fL (81-99); MONOCYTES # (AUTO) 1.1 (0.2-0.8); MONOCYTES % 13.4 % (4.4-11.3); NEUTROPHILS % 50.5 % (38.7-80.0); RED BLOOD COUNT 2.74 x10e6/uL (3.6-5.1); RED CELL DISTRIBUTION WIDTH 14.6 % (11.7-14.4)
[2023-11-05 06:59] LABS: ALBUMIN 2.7 g/dL (3.5-5.0); ALBUMIN/GLOBULIN RATIO 1.1 (0.8-2.0); CALCIUM 7.8 mg/dL (8.4-10.2); CREATININE, SERUM 1.05 mg/dL (0.57-1.11); TOTAL PROTEIN 5.2 g/dL (6.5-8.1)
[2023-11-05 07:17] LABS: PHOSPHORUS 1.6 MG/DL (2.3-4.7)
[2023-11-05 07:21] LABS: PLATELET COUNT 38 x10e3/uL (140-360)
[2023-11-05 07:45] LABS: MAGNESIUM 0.9 MG/DL (1.3-2.1)
[2023-11-05] MEDS: RIFAXIMIN 550 MG TABLET PO SCH (09:41)
[2023-11-05] MEDS: MAGNESIUM SULFATE 2GM/50ML 50 ML IV ONE ×2 (09:41→12:31)
[2023-11-05] MEDS: SODIUM CHLORIDE 0.9% 100 ML ONE (09:41)
[2023-11-05 09:46] LABS: LYMPHOCYTES % (MANUAL) 13 % (19-48); MONOCYTES % (MANUAL) 3 % (3.4-9.0); MYELOCYTES % (MANUAL) 11 % (0-0); NEUTROPHILS % (MANUAL) 72 % (40-74); NUCLEATED RED BLOOD CELLS 1; PLATELET ESTIMATE MARKEDLY DECREASED; PLATELET MORPHOLOGY COMMENT NORMAL; REACTIVE LYMPHOCYTES 1
[2023-11-05] MEDS: ACETAMINOPHEN 325 MG TAB PO PRN (09:47)
[2023-11-05 09:48] LABS: POLYCHROMASIA FEW
[2023-11-05 09:49] LABS: ANISOCYTOSIS SLIGHT; RBC MORPHOLOGY COMMENT NORMAL
[2023-11-05] MEDS: POTASSIUM PHOSPHATE 30 MM in SODIUM CHLORIDE 0.9% 250ML 250 ML IV ONE (11:22)
[2023-11-06] VITALS (28 sets, daily range): BP systolic 99–148; BP diastolic 43–71; PULSE 57–80; RESP 11–34; TEMP 97.4–98.6; O2SAT 95–100
[2023-11-06 07:01] LABS: BASOPHILS # (AUTO) 0.1 (0.0-0.1); BASOPHILS % 0.7 % (0.0-1.0); EOSINOPHILS # (AUTO) 0.4 (0.0-0.4); EOSINOPHILS % 4.5 % (0.0-6.0); HEMATOCRIT 25.9 % (34.2-44.1); HEMOGLOBIN 8.3 g/dL (12.0-16.0); LYMPHOCYTES # (AUTO) 1.9 (1.0-3.2); LYMPHOCYTES % 23.5 % (18.0-39.1); MEAN CORPUSCULAR HEMOGLOBIN 30.6 pg (28-32); MEAN CORPUSCULAR VOLUME 95.6 fL (81-99); MONOCYTES # (AUTO) 0.9 (0.2-0.8); MONOCYTES % 11.2 % (4.4-11.3); NEUTROPHILS # (AUTO) 3.7 (2.1-6.9); NEUTROPHILS % 46.5 % (38.7-80.0); RED BLOOD COUNT 2.71 x10e6/uL (3.6-5.1); RED CELL DISTRIBUTION WIDTH 14.6 % (11.7-14.4); WHITE BLOOD COUNT 8.01 x10e3/uL (4.8-10.8)
[2023-11-06 07:05] LABS: PLATELET COUNT 39 x10e3/uL (140-360)
[2023-11-06 07:33] LABS: ALBUMIN 2.3 g/dL (3.5-5.0); ALBUMIN/GLOBULIN RATIO 0.9 (0.8-2.0); ANION GAP 12.1 mmol/L (8-16); BILIRUBIN,TOTAL 6.6 mg/dL (0.2-1.2); CALCIUM 7.3 mg/dL (8.4-10.2); CREATININE, SERUM 0.81 mg/dL (0.57-1.11); MAGNESIUM 1.3 MG/DL (1.3-2.1); TOTAL PROTEIN 4.8 g/dL (6.5-8.1)
[2023-11-06 07:35] LABS: POTASSIUM 3.1 mmol/L (3.5-5.1)
[2023-11-06] MEDS: MAGNESIUM SULFATE 2GM/50ML 50 ML IV ONE (08:28)
[2023-11-06] MEDS: POTASSIUM CHLORIDE 20MEQ/100ML 100 ML IV SCH (08:28)
[2023-11-06] MEDS: MAGNESIUM SULF 1GRAM/DEXTROSE 100 ML IV ONE (08:28)
[2023-11-06 10:02] LABS: BAND NEUTROPHILS % (MANUAL) 1 %; EOSINOPHILS % (MANUAL) 4 % (0-7); LYMPHOCYTES % (MANUAL) 15 % (19-48); METAMYELOCYTES % (MANUAL) 3 % (0-0); MONOCYTES % (MANUAL) 12 % (3.4-9.0); MYELOCYTES % (MANUAL) 3 % (0-0); NEUTROPHILS % (MANUAL) 62 % (40-74); NUCLEATED RED BLOOD CELLS 1
[2023-11-06 10:03] LABS: PLATELET ESTIMATE MARKEDLY DECREASED; PLATELET MORPHOLOGY COMMENT NORMAL; RBC MORPHOLOGY COMMENT NORMAL
[2023-11-06] MEDS: SPIRONOLACTONE 25 MG TAB PO SCH (16:11)
[2023-11-06 18:01] LABS: ANION GAP 14.4 mmol/L (8-16); CALCIUM 7.3 mg/dL (8.4-10.2); CREATININE, SERUM 1.02 mg/dL (0.57-1.11)
[2023-11-06 18:03] LABS: POTASSIUM 3.4 mmol/L (3.5-5.1)
[2023-11-06] MEDS: BUMETANIDE INJ 0.25MG/ML 4ML VIAL IV SCH (20:25)
[2023-11-07] VITALS (28 sets, daily range): BP systolic 81–156; BP diastolic 46–81; PULSE 66–83; RESP 13–24; TEMP 97.6–98.4; O2SAT 95–99
[2023-11-07 07:01] LABS: BASOPHILS % 0.4 % (0.0-1.0); EOSINOPHILS # (AUTO) 0.3 (0.0-0.4); EOSINOPHILS % 3.7 % (0.0-6.0); HEMATOCRIT 24.4 % (34.2-44.1); HEMOGLOBIN 7.9 g/dL (12.0-16.0); LYMPHOCYTES # (AUTO) 1.9 (1.0-3.2); LYMPHOCYTES % 25.1 % (18.0-39.1); MEAN CORPUSCULAR HEMOGLOBIN 30.9 pg (28-32); MEAN CORPUSCULAR HGB CONC 32.4 g/dL (31-35); MEAN CORPUSCULAR VOLUME 95.3 fL (81-99); MONOCYTES # (AUTO) 0.8 (0.2-0.8); NEUTROPHILS # (AUTO) 3.7 (2.1-6.9); NEUTROPHILS % 49.6 % (38.7-80.0); RED BLOOD COUNT 2.56 x10e6/uL (3.6-5.1); RED CELL DISTRIBUTION WIDTH 14.5 % (11.7-14.4); WHITE BLOOD COUNT 7.38 x10e3/uL (4.8-10.8)
[2023-11-07 07:12] LABS: PLATELET COUNT 32 x10e3/uL (140-360)
[2023-11-07 07:33] LABS: ALBUMIN 2.2 g/dL (3.5-5.0); ANION GAP 11.1 mmol/L (8-16); BILIRUBIN,TOTAL 5.7 mg/dL (0.2-1.2); CALCIUM 7.1 mg/dL (8.4-10.2); CREATININE, SERUM 0.79 mg/dL (0.57-1.11); MAGNESIUM 1.6 MG/DL (1.3-2.1); PHOSPHORUS 1.6 MG/DL (2.3-4.7); TOTAL PROTEIN 4.5 g/dL (6.5-8.1)
[2023-11-07 07:41] LABS: POTASSIUM 3.1 mmol/L (3.5-5.1)
[2023-11-07 08:26] LABS: BAND NEUTROPHILS % (MANUAL) 1 %; BASOPHILS % (MANUAL) 1 % (0-1.5); EOSINOPHILS % (MANUAL) 3 % (0-7); LYMPHOCYTES % (MANUAL) 12 % (19-48); MONOCYTES % (MANUAL) 9 % (3.4-9.0); MYELOCYTES % (MANUAL) 2 % (0-0); NEUTROPHILS % (MANUAL) 72 % (40-74); PLATELET ESTIMATE MARKEDLY DECREASED; PLATELET MORPHOLOGY COMMENT NORMAL
[2023-11-07 08:27] LABS: RBC MORPHOLOGY COMMENT NORMAL
[2023-11-07] MEDS ORDERED: XIFAXAN550 MG PO (08:47)
[2023-11-07] MEDS ORDERED: ALDACTONE25 MG PO (08:47)
[2023-11-07] MEDS ORDERED: LACTULOSE20 GM/30 M PO (08:47)
[2023-11-07] MEDS ORDERED: Multivitamins/Minerals Tab PO (08:47)
[2023-11-07] MEDS ORDERED: CEPHALEXIN500 MG PO (08:50)
[2023-11-07] MEDS: POTASSIUM CHLORIDE 20 MEQ TAB CR PO ONE (10:20)
[2023-11-07] MEDS: POTASSIUM PHOSPHATE 30 MM in SODIUM CHLORIDE 0.9% 250ML 250 ML IV ONE (10:22)
[2023-11-07 14:34] LABS: BODY FLUID APPEARANCE SL.CLOUDY; BODY FLUID COLOR YELLOW; BODY FLUID TYPE PERITONEAL; RBC,BODY FLUID 2000 cells/uL; WBC,BODY FLUID 173 cells/uL
[2023-11-07] MEDS: POTASSIUM CHLORIDE 20MEQ/100ML 200 ML IV ONE (14:44)
[2023-11-07] MEDS: SPIRONOLACTONE 25 MG TAB PO SCH (14:45)
[2023-11-07 18:56] LABS: LYMPHOCYTES,BODY FLUID 44 %; MONO/MACROPHG,BODY FLUID 35 %; NEUTROPHILS,BODY FLUID 21 %; TOTAL CELLS COUNTED (DIFF) 100
== END 2023-11-07 20:30 | disposition home health service (06) | DRG 432 ==
LOC: ER 23:53 → ERHOLD 11-01 02:20 → ICU 11-01 14:30
PROVIDERS: ADMIT Family Medicine Adult Medicine; ATTEND Family Medicine Adult Medicine
PROC: 3E033XZ Introduction of Vasopressor into Peripheral Vein, Percutaneous Approach (ICD-10-PCS; 2023-11-01)
PROC: 4A033R1 Measurement of Arterial Saturation, Peripheral, Percutaneous Approach (ICD-10-PCS; 2023-11-01)
PROC: 02HV33Z Insertion of Infusion Device into Superior Vena Cava, Percutaneous Approach (ICD-10-PCS; 2023-11-01)
PROC: 30233K1 Transfusion of Nonautologous Frozen Plasma into Peripheral Vein, Percutaneous Approach (ICD-10-PCS; 2023-11-02)
PROC: 0W9G3ZZ Drainage of Peritoneal Cavity, Percutaneous Approach (ICD-10-PCS; principal; 2023-11-07)
DX: K70.31 Alcoholic cirrhosis of liver with ascites (principal); I50.31 Acute diastolic (congestive) heart failure; K76.7 Hepatorenal syndrome; L03.115 Cellulitis of right lower limb; N17.9 Acute kidney failure, unspecified; J90 Pleural effusion, not elsewhere classified; E87.20 Acidosis, unspecified; I85.10 Secondary esophageal varices without bleeding; D68.9 Coagulation defect, unspecified; K76.6 Portal hypertension; K76.82 Hepatic encephalopathy; I11.0 Hypertensive heart disease with heart failure; F10.21 Alcohol dependence, in remission; I95.9 Hypotension, unspecified; D63.8 Anemia in other chronic diseases classified elsewhere; D69.6 Thrombocytopenia, unspecified; E83.42 Hypomagnesemia; E83.39 Other disorders of phosphorus metabolism; R19.7 Diarrhea, unspecified; K80.20 Calculus of gallbladder without cholecystitis without obstruction; I08.3 Combined rheumatic disorders of mitral, aortic and tricuspid valves; E66.9 Obesity, unspecified; Z68.33 Body mass index [BMI] 33.0-33.9, adult; Z87.891 Personal history of nicotine dependence; Z11.52 Encounter for screening for COVID-19; Z79.899 Other long term (current) drug therapy
CPT/HCPCS: 36415; 36569; 36600; 49083; 51700; 71045; 74470; 76700; 76705; 76770; 80048; 80053; 82040; 82105; 82140; 82570; 82607; 82746; 82805; 83540; 83690; 83735; 83880; 84100; 84157; 84300; 84466; 85025; 85045; 85610; 85730; 86850; 86900; 87040; 87070; 87205; 88112; 88305; 89051; 93306; 93970; 94799; 99252; 99285; J0360; J0696; J2353; J2405; J2543; J3430; J3475; J3480; J7040; J7050; J7070; J7120; P9017; P9047; U0002

== ENCOUNTER → 2024-11-28 | Day surgery (SDC) | payer MEDICARE, OTHER ==
[2024-11-22 15:55] LABS: BASOPHILS % 0.5 % (0.0-1.0); EOSINOPHILS % 6.9 % (0.0-6.0); LYMPHOCYTES % 30.7 % (18.0-39.1); MONOCYTES % 9.8 % (4.4-11.3); NEUTROPHILS % 51.5 % (38.7-80.0); RED CELL DISTRIBUTION WIDTH 15.6 % (11.7-14.4)
[2024-11-22 16:12] LABS: INR 1.23
[2024-11-22 16:21] LABS: EST GLOMERULAR FILTRATION RATE 72.0 ML/MIN (>=60)
[~2024-11-28] MED LIST changes: +ALDACTONE25 MG PO; +CEPHALEXIN500 MG PO; +FENTANYL CITRATE/PF 100MCG/2 ML INJ ONE; +GLYCOPYRROLATE INJ 0.2 MG/ML VIAL ONE; +HUMALOG100 UNIT/1 SC; +LACTULOSE20 GM/30 M PO; +LASIX10 MG/ML PO; +LIDOCAINE HCL 2% LOCAL INJ 5 ML SDV VIAL INJ ONE; +METFORMIN HCL500 MG PO; +Multivitamins/Minerals Tab PO; +PROPOFOL IV EMULSION 10 MG/ML 20 ML VIAL ONE; +PROPRANOLOL HCL10 MG PO; +TRESIBA FL100 UNIT/1 SQ; +XIFAXAN550 MG PO
[2024-11-28] MEDS: LACTATED RINGER'S 1,000 ML ONE (07:16)
[2024-11-28 07:50] VITALS: TEMP 97.5
[2024-11-28 08:05] VITALS: BP 127/62; PULSE 78; RESP 16; O2SAT 98
== END | disposition home or self-care (01) ==
LOC: OR 05:25
PROVIDERS: ATTEND Internal Medicine Gastroenterology
DX: K70.30 Alcoholic cirrhosis of liver without ascites (principal); I85.10 Secondary esophageal varices without bleeding; K76.6 Portal hypertension; K29.60 Other gastritis without bleeding; I10 Essential (primary) hypertension; E11.9 Type 2 diabetes mellitus without complications; K21.9 Gastro-esophageal reflux disease without esophagitis; Z79.4 Long term (current) use of insulin; Z79.84 Long term (current) use of oral hypoglycemic drugs; Z01.810 Encounter for preprocedural cardiovascular examination; Z01.812 Encounter for preprocedural laboratory examination
CPT/HCPCS: 36415 ×2; 43235; 80053; 82948; 85025; 85610; 85730; 93005; J2003; J2704; J3010; J7121